=== PATIENT | female | born 1970 | race Caucasian/White ===

== ENCOUNTER → 2020-05-31 15:21 | Outpatient (CLI) | payer SELFPAY ==
[2020-05-31 14:57] VITALS: BMI 25.9
[2020-05-31 15:22] LABS: Lyme Ab Screen Interpretation REF LAB
[2020-05-31 17:26] LABS: Absolute Neutrophil Count 2.2 X10^3/uL (2.0-7.7); Basophil# 0.01 X10^3/uL; Basophil% 0.2 % (0-1); Eosinophil# 0.12 X10^3/uL; Eosinophils% 2.6 % (0-5); Hematocrit 39.8 % (37-47); Hemoglobin 12.5 g/dL (12.0-15.0); Lymphocyte % 37.1 % (19-41); Mean Corp Hgb Conc 31.4 g/dL (32-36); Mean Corpuscular Hgb 26.7 pg (27.0-32.0); Mean Corpuscular Volume 84.9 fL (81-99); Monocyte% 10.9 % (0-10); NRBC Flagged by Analyzer 0 % (0-5); Neutrophil # 2.24 X10^3/uL (2.7-7.7); Platelet Count 290 K/mm3 (150-450); RBC Distribution Width SD 39.8 fl (35.1-43.9); Red Blood Count 4.69 M/mm3 (4.2-5.4); White Blood Count 4.6 K/mm3 (4.4-11.0)
[2020-05-31 17:30] LABS: Anion Gap 4 (5-15); BUN 13 mg/dL (7-18); BUN/Creat Ratio 26.6 RATIO (10-20); Calcium,Total 9.8 mg/dL (8.5-10.1); Chloride 106 mmol/L (98-107); Creatinine, Serum 0.49 mg/dL (0.55-1.02); EST Glomerular Filtration Rate 143 mL/min (>60); Est Glom Filt Rate - Afr Amer 173 mL/min (>60); Glucose 106 mg/dL (74-106); Potassium 4.2 mmol/L (3.5-5.1); Sodium Level 141 mmol/L (136-145)
[2020-06-02 20:52] LABS: Lyme Scn Total Ab w/Rflx <0.91 ISR (0.00-0.90)
== END ==
PROVIDERS: PCP Family Medicine; Referring Provider Family Medicine; Visit Provider Family Medicine
DX: M25.50 Pain in unspecified joint (principal); R53.83 Other fatigue
CPT/HCPCS: 36415; 80048; 85025; 86618

== ENCOUNTER → 2020-06-08 09:38 | Outpatient (CLI) | payer SELFPAY ==
[2020-05-31 14:57] VITALS: BMI 25.9
--- NOTE | 2020-06-08 09:41 | ECHOD_ITS ---
Reason For Study: Syncope/near syncope Procedure This was a 2D Doppler, Color Flow transthoracic echocardiogram. Exam performed in department. Left Ventricle Normal LV size. Left ventricular systolic function is normal. The estimated ejection fraction is 60 %. Normal diastology for age. No regional wall motion abnormalities noted. Right Ventricle Normal RV size. Normal systolic function. Atria Normal left atrium. Normal right atrium. Patent foramen ovale. Mitral Valve Normal mitral valve. Tricuspid Valve Normal tricuspid valve. Unable to estimate RV systolic pressure due to inadequate jet, pulmonary artery pressure probably normal. Great Vessels Normal aortic root. The pulmonary artery is normal size. Normal inferior vena cava. Pericardium/Pleural No pericardial effusion. Medication 22 gauge I.V. with prn adaptor inserted into left arm. Performed a rapid injection of agitated mix of 9 cc saline and 1cc air to assess for atrial septal defect. MMode/2D Measurements & Calculations LVIDd: 5.0 cm IVSd: 1.0 cm Ao root diam: 3.2 cm LVIDs: 2.8 cm LVPWd: 0.98 cm RVDd: 3.6 cm FS: 44.8 % LAV(MOD-bp): 45.1 ml EDV(MOD-sp4): 104.5 ml EDV(MOD-sp2): 89.5 ml LAV(MOD-bp) Indexed: 26.2 ml/m2 ESV(MOD-sp4): 44.2 ml EF(MOD-sp2): 63.1 % LAV(MOD-sp2): 44.9 ml EF(MOD-sp4): 57.7 % LAV(MOD-sp4): 43.5 ml SV(MOD-sp4): 60.3 ml SV(MOD-sp2): 56.5 ml LA A4 area: 16.3 cm2 LA dimension(2D): 3.1 cm RA A4 area: 11.6 cm2 Doppler Measurements & Calculations MV E max elias: 55.9 cm/sec Lat Peak E' Elias: 14.7 cm/sec Med Peak E' Elias: 10.9 cm/sec MV A max elias: 44.6 cm/sec E/E' lat: 3.8 E/E' med: 5.1 MV E/A: 1.3 Ao V2 max: 169.7 cm/sec LV V1 max: 151.4 cm/sec PA V2 max: 94.2 cm/sec Ao max P.5 mmHg LV V1 max P.2 mmHg Interpretation Summary Normal LV size. Left ventricular systolic function is normal. The estimated ejection fraction is 60 %. Patent foramen ovale. Unable to estimate RV systolic pressure due to inadequate jet, pulmonary artery pressure probably normal. Ordering Physician: Roshan Murillo Referring Physician: Roshan Murillo Performed By: Bernie Stafford RDCS
== END ==
PROVIDERS: PCP Family Medicine; Referring Provider Family Medicine; Visit Provider Family Medicine
DX: R06.00 Dyspnea, unspecified (principal)
CPT/HCPCS: 93306; A4216